=== PATIENT | male | born 1940 | race Caucasian/White ===

== ENCOUNTER 2019-07-18 06:19 | Emergency (ER) | payer BC, MEDICARE ==
[~2019-07-18] VITALS: Ht 175.3 cm; Wt 93.0 kg
--- NOTE | 2019-07-18 06:31 | NUR ---
ED Nurse Note: Pt ambulated to ED from home with , pt fell in bathroom at 0100 hitting his chest on the toilet, c/o 4/10 pain. VSS
[2019-07-18 06:32] VITALS: BP 167/84
--- NOTE | 2019-07-18 06:39 | Emergency Room Report ---
History of Present Illness General Chief Complaint: Multiple Trauma/Fall Source: Patient Present Illness HPI Patient is a 79-year-old male presents after increased center chest pain. Onset of symptoms occurred after a fall approximately 5 hours prior to arrival. Patient had prior history of thrombocytopenia. He is not currently taking any blood thinners other than aspirin. He had prior history of hypertension and is on Coreg. Carvedilol amlodipine and Edarbi. He reports having some central chest discomfort. Denies loss of consciousness. No fevers. Allergies: Coded Allergies: No Known Allergies (Unverified , 07/18/19) Patient History Past Medical History: HTN Past Surgical History: other - back surgery Reviewed Nursing Documentation: PMH: Agreed; PSxH: Agreed Nursing Documentation-PMH Hx Hypertension: Yes Review of Systems All Other Systems: negative except mentioned in HPI Physical Exam Vital Signs Date Time Temp Pulse Resp B/P (MAP) Pulse Ox O2 Delivery O2 Flow Rate FiO2 07/18/19 06:21 60 16 167/84 (111) 97 Room Air Sp02 EP Interpretation: reviewed, normal General Appearance: normal inspection, well appearing, no apparent distress, alert, GCS 15, obese Head: atraumatic ENT: normal ENT inspection, hearing grossly normal, normal voice Neck: normal inspection, full range of motion, supple, no bony tend Respiratory: normal inspection, lungs clear, normal breath sounds, no respiratory distress, no retraction, no wheezing Cardiovascular #1: regular rate, rhythm, no edema Gastrointestinal: normal inspection, normal bowel sounds, non tender, soft, no guarding, no hernia Genitourinary: no CVA tenderness Musculoskeletal: normal inspection, back normal, normal range of motion Neurologic: normal inspection, alert, oriented x3, responsive, 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 Differential diagnosis include was not limited to chest wall contusion, sternal fracture, rib fracture , pneumothorax among others. Because of complexity of patient's case laboratory tests and imaging studies were ordered. Has an overall benign exam. He appears to be somewhat chronically ill but does not appear to have any symptoms consistent with acute coronary syndrome. CT of chest was ordered due to patient's advanced age and read by radiology showed multiple chronic findings with some evidence of subcutaneous tissue swelling consistent with a chest wall contusion. There is no evident acute hemorrhage. Patient was advised to follow-up with his primary care physician regarding CT findings. He was given a copy of the reports. EKG interpreted by me showed normal sinus rhythm with a rate of 53 with right bundle branch block.Patient was given lidocaine patch as well as acetaminophen. He was advised to follow-up with his primary care physician for recheck. Patient was to return if any worsening condition or other concerns. EKG Diagnostic Results Rate: normal Rhythm: NSR ST Segments: no acute changes Last Vital Signs Date Time Temp Pulse Resp B/P (MAP) Pulse Ox O2 Delivery O2 Flow Rate FiO2 07/18/19 06:32 60 16 Room Air 07/18/19 06:32 167/84 97 Status: improved Disposition: HOME, SELF-CARE Condition: Stable Scripts Acetaminophen* (ACETAMINOPHEN EXTRA STRENGTH*) 500 Mg Tablet 500 MG ORAL Q8H PRN for Fever/Headache/Mild Pain, #30 TAB Prov: Eugene Valentin MD 07/18/19 Lidocaine Patch* (Lidoderm Patch*) 1 Each Adh..patch 1 PATCH TOPIC DAILY, #7 PATCH 0 Refills Patch(es) may remain in place for up to 12 hours in any 24-hour period. Prov: Eugene Valentin MD 07/18/19 Eugene Valentin MD Jul 18, 2019 06:39
--- NOTE | 2019-07-18 07:07 | NUR ---
HAND-OFF: Report given to DEMARIO Bradshaw.
[2019-07-18] MEDS ORDERED: LIDODERM700 M1 TOPIC (07:20)
[2019-07-18] MEDS ORDERED: ACETAMINOPHEN500 M3 ORAL (07:20)
[2019-07-18] MEDS ORDERED: Acetaminophen 500mg (ES) tab ORAL ONE (07:30)
--- NOTE | 2019-07-18 07:31 | Diagnostic Imaging Report ---
Indication: Chest pain Technique: Continuous helical transaxial imaging of the chest was obtained from the thoracic inlet to the upper abdomen. No intravenous contrast was administered. Coronal 2-D reformats were also obtained. Total Dose length Product (DLP): [address] Dose Index Volume (CTDIvol): 19.9 mGy Comparison: none Findings: There are fine, reticular densities at the lung bases nonspecific. Small hiatal hernia is present. There are small hypodensities within the liver nonspecific. No contrast given on this study. Gallstones are noted. Moderate calcification of aorta demonstrated. Coronary calcification also noted. No adenopathy identified. No consolidative opacities within the lungs identified. No pleural effusion seen. Few calcific granulomata are noted. In the anterior chest wall on the right side, there is ill-defined subcutaneous edema nature which is not known. Correlate for trauma or infection/cellulitis. There is no abnormal fluid collection or evidence of an abscess. IMPRESSION: Right lower anterior chest wall edema versus cellulitis. Correlate clinically. No acute findings. Mild prominence of the interstitium at the lung bases nonspecific. Atherosclerotic vascular disease. All stones. Hypodensities in the liver too small to characterize adequately on this examination done without IV contrast. The CT scanner at [facility] is accredited by the [employer] and the scans are performed using dose optimization techniques as appropriate to a performed exam including Automatic Exposure control.
--- NOTE | 2019-07-18 07:45 | NUR ---
ER DISCHARGE NOTE: Patient is cleared to be discharged per ERMD, pt is aox4, on room air, with stable vital signs. pt was given dc and prescription instructions, pt was able to verbalize understanding, pt id band removed without complications. pt is able to ambulate with steady gait. pt took all belongings.
== END 2019-07-18 07:48 | disposition home or self-care (01) ==
LOC: EMR 06:50
DX: S20.219A Contusion of unspecified front wall of thorax, initial encounter (principal); I10 Essential (primary) hypertension; Z79.82 Long term (current) use of aspirin; I45.10 Unspecified right bundle-branch block; W01.0XXA Fall on same level from slipping, tripping and stumbling without subsequent striking against object, initial encounter; Y92.9 Unspecified place or not applicable
CPT/HCPCS: 71250; 93005; 99284

== ENCOUNTER 2019-10-04 19:34 | Inpatient (IN) | payer BC, MEDICARE ==
[~2019-10-04] VITALS: Ht 175.3 cm; Wt 95.7 kg
[~2019-10-04 19:34] MED LIST: ACETAMINOPHEN500 M3 ORAL; LIDODERM700 M1 TOPIC
[2019-10-04] MEDS ORDERED: FLOMAX0.4 MG ORAL (19:50)
[2019-10-04] MEDS ORDERED: EDARBI80 MG ORAL (19:50)
[2019-10-04] MEDS ORDERED: AMLODIPINE BESYL5 MG ORAL (19:50)
[2019-10-04] MEDS ORDERED: CARVEDILOL25 MG ORAL (19:50)
[2019-10-04] MEDS ORDERED: LIPITOR40 MG ORAL (19:50)
[2019-10-04 19:51] VITALS: BP 147/80
--- NOTE | 2019-10-04 19:51 | NUR ---
ED Nurse Note: PT FROM HOME CAME IN S/P SLIPPED AND FELL IN THE KITCHEN. PT HIT HIS HEAD AND BURNED HIS RIGHT LEG ON THE OVEN DOOR WHILE TAKING SOMETHING OUT FORM THE OVEN. NOTE BURNED SKIN ON RIGHT KNEE AND RIGTH THIGH. ALSO NOTED A LARGE HEMATOMA ON RIGHT LATERAL FOREHEAD. AAO X,4 AMBULATORY. DENIES DIZZINESS OR VOMITING. AT THE BED SIDE.
--- NOTE | 2019-10-04 20:10 | NUR ---
ED Nurse Note: NOTED OLD BRUISING ON RIGHT UPPER ARM. PT STATES IT WAS FROM ANOTHER FALL AND HE IS TAKING ASPIRIN.
--- NOTE | 2019-10-04 20:20 | NUR ---
ED Nurse Note: PT TAKEN TO CT AND STABLE.
--- NOTE | 2019-10-04 20:28 | NUR ---
ED Nurse Note: PT CAME BACK FROM CT AND STABLE.
[2019-10-04 20:35] LABS: HEMATOCRIT 40.6 % (42.0-52.0); HEMOGLOBIN 14.1 G/DL (14.2-18.0); MEAN CORPUSCULAR VOLUME 86 FL (80-99); PLATELET COUNT 89 K/UL (150-450); RED BLOOD COUNT 4.72 M/UL (4.70-6.10); RED CELL DISTRIBUTION WIDTH 13.5 % (11.6-14.8); WHITE BLOOD COUNT 5.3 K/UL (4.8-10.8)
--- NOTE | 2019-10-04 20:38 | Diagnostic Imaging Report ---
Indications: Head trauma Technique: Spiral acquisitions obtained through the brain. Angled axial and coronal 5 x 5 mm slices were reconstructed. Total dose length product 1457 mGycm. CTDI vol(s) 62 mGy. Dose reduction achieved using automated exposure control Comparison: None. Findings: No acute intracranial hemorrhage or edema. No mass effect nor midline shift. There is mild age-related enlargement of the ventricles and extra axial CSF spaces. Normal arguello-white differentiation. Intact calvarium. Visualized orbits and sinuses are unremarkable. The mastoids are clear. There is a right frontal scalp hematoma noted. Impression: Extracranial right frontal scalp hematoma Negative for acute intracranial bleed or mass effect Minimal age-related volume loss This agrees with the preliminary interpretation provided overnight by [facility] teleradiology service. The CT scanner at [facility] is accredited by the [employer] and the scans are performed using protocols designed to limit radiation exposure to as low as reasonably achievable to attain images of sufficient resolution adequate for diagnostic evaluation.
[2019-10-04 20:39] LABS: INR 0.9 (0.9-1.1)
[2019-10-04] MEDS ORDERED: Bacitracin Oint UD TOPIC ONE ×2 (20:48→21:00)
[2019-10-04 20:54] LABS: ANION GAP 9 mmol/L (5-15); BLOOD UREA NITROGEN 38 mg/dL (7-18); CALCIUM 8.9 MG/DL (8.5-10.1); CARBON DIOXIDE 28 MMOL/L (21-32); CHLORIDE 104 MMOL/L (98-107); CREATININE 0.9 MG/DL (0.55-1.30); POTASSIUM 4.6 MMOL/L (3.5-5.1); SODIUM 141 MMOL/L (136-145)
[2019-10-04 21:00] LABS: ALANINE AMINOTRANSFERASE 23 U/L (12-78); ALBUMIN 4.1 G/DL (3.4-5.0); ALBUMIN/GLOBULIN RATIO 1.2 (1.0-2.7); ALKALINE PHOSPHATASE 64 U/L (46-116); ASPARTATE AMINO TRANSFERASE 39 U/L (15-37); BILIRUBIN,TOTAL 0.5 MG/DL (0.2-1.0)
--- NOTE | 2019-10-04 21:26 | Emergency Room Report ---
History of Present Illness General Chief Complaint: Multiple Trauma/Fall Source: Patient Present Illness Allergies: Coded Allergies: No Known Allergies (Unverified , 07/18/19) Nursing Documentation-PMH Hx Cardiac Problems: Yes - cvd; 2 stents Hx Hypertension: Yes Hx Pacemaker: No Hx Asthma: No Hx COPD: No Hx Diabetes: No Hx Cancer: No Hx Gastrointestinal Problems: No Hx Dialysis: No History Of Psychiatric Problem: No Hx Neurological Problems: No Hx Cerebrovascular Accident: No Hx Seizures: No Physical Exam Vital Signs Date Time Temp Pulse Resp B/P (MAP) Pulse Ox O2 Delivery O2 Flow Rate FiO2 10/04/19 19:41 98.1 58 18 194/79 (117) 98 Room Air Medical Decision Making Last Vital Signs Date Time Temp Pulse Resp B/P (MAP) Pulse Ox O2 Delivery O2 Flow Rate FiO2 10/04/19 19:51 98.1 62 15 147/80 100 Room Air Uma Batista DO Oct 04, 2019 21:26
[2019-10-04 22:05] VITALS: BP 172/67
--- NOTE | 2019-10-04 22:15 | NUR ---
ED Nurse Note: AMLODIPINE 5MG PO GIVEN TO PT PER ERMD ORDER. (SEE PAPER CHART)
--- NOTE | 2019-10-04 23:06 | NUR ---
HAND-OFF: Report given to HENRY HANKS.
--- NOTE | 2019-10-04 23:14 | NUR ---
ED Nurse Note: asked to call back in 10 minutes to give report. will continue to monitor pt
--- NOTE | 2019-10-04 23:24 | NUR ---
ED Nurse Note: report given to DEMARIO Zaragoza
--- NOTE | 2019-10-04 23:40 | NUR ---
NURSE NOTES: Received patient from ER, patient alert and oriented x4. Ambulatory, steady, walked to the bathroom. at bedside. Instructed patient to call if he needs to get out of bed d/t recent fall. Patient has a right forehead hematoma from fall. Head CT was negative. Pupils equal, round, reactive. Able to move all extremities, equal strength bilaterally. Multiple bruises on upper and lower extremities. Patient states bruises were old and that it happens frequently because he has low platelets. Multiple first degree burn benjamin on lower extremity, see photos. Bed in low position, locked, bed alarm on, call light within reach.
[2019-10-04 23:50] VITALS: BP 172/82
--- NOTE | 2019-10-05 00:30 | NUR ---
NURSE NOTES: Received admitting orders from Dr. Daniel. Patient has a SBP >170 but heart rate is below 50, will hold clonidine and continue to monitor.
[2019-10-05 04:00] VITALS: BP 159/75
[2019-10-05 07:46] LABS: ANION GAP 9 mmol/L (5-15); BLOOD UREA NITROGEN 25 mg/dL (7-18); CALCIUM 8.7 MG/DL (8.5-10.1); CARBON DIOXIDE 26 MMOL/L (21-32); CHLORIDE 107 MMOL/L (98-107); CREATININE 0.8 MG/DL (0.55-1.30); HEMATOCRIT 35.4 % (42.0-52.0); HEMOGLOBIN 12.3 G/DL (14.2-18.0); MEAN CORPUSCULAR VOLUME 85 FL (80-99); PLATELET COUNT 69 K/UL (150-450); RED BLOOD COUNT 4.18 M/UL (4.70-6.10); RED CELL DISTRIBUTION WIDTH 13.4 % (11.6-14.8); SODIUM 142 MMOL/L (136-145); WHITE BLOOD COUNT 6.2 K/UL (4.8-10.8)
[2019-10-05 08:53] VITALS: BP 115/61
[2019-10-05] MEDS ORDERED: Tamsulosin 0.4mg cap ORAL SCH (09:00)
[2019-10-05] MEDS ORDERED: Carvedilol 25mg Tab ORAL SCH (09:00)
--- NOTE | 2019-10-05 11:24 | NUR ---
patient discharged with all his belonging as ordered per protocol. vital signs stable. patient a/o x 4 no c/o pain and SOB.
--- NOTE | 2019-10-05 11:48 | History and Physical ---
History of Present Illness General Date patient seen: Oct 05, 2019 Reason for Hospitalization: Multiple Trauma/Fall Present Illness HPI 79 year old male with hx of ITP, BPH, HTN, presented to ER after an episode of fall at home in their kitchen next to the oven. He sustained superficial skin burn. His initial ct of head in ER was negative. He is admitted for observation. Allergies: Coded Allergies: No Known Allergies (Unverified , 07/18/19) Medication History Scheduled Amlodipine Besylate* (Amlodipine Besylate*), 5 MG ORAL DAILY, (Reported) Atorvastatin Calcium* (Lipitor*), 40 MG ORAL DAILY, (Reported) Azilsartan Medoxomil (Edarbi), 80 MG ORAL DAILY, (Reported) Carvedilol* (Carvedilol*), 25 MG ORAL EVERY 12 HOURS, (Reported) Lidocaine Patch* (Lidoderm Patch*), 1 PATCH TOPIC DAILY Tamsulosin HCl (Flomax), 0.4 MG ORAL DAILY, (Reported) Scheduled PRN Acetaminophen* (Acetaminophen Extra Strength*), 500 MG ORAL Q8H PRN for Fever/ Headache/Mild Pain Patient History Healthcare decision maker Resuscitation status Full Code Advanced Directive on File Past Medical/Surgical History Past Medical/Surgical History: (1) Hypertension (2) BPH (benign prostatic hyperplasia) (3) Chronic ITP (idiopathic thrombocytopenia) Review of Systems All Other Systems: negative except mentioned in HPI Physical Exam General Appearance: WD/WN Lines, tubes and drains: peripheral HEENT: normocephalic, atraumatic Neck: non-tender, normal alignment Respiratory/Chest: chest wall non-tender, lungs clear Breasts: no masses Cardiovascular/Chest: normal rate, regular rhythm Abdomen: normal bowel sounds Genitourinary/Rectal: normal genital exam Skin Exam: normal pigmentation Neurologic: cadmium burner II-XII grossly normal Last 24 Hour Vital Signs Date Time Temp Pulse Resp B/P (MAP) Pulse Ox O2 Delivery O2 Flow Rate FiO2 10/05/19 08:53 96.6 92 20 115/61 (79) 94 10/05/19 04:00 96.6 73 19 159/75 (103) 97 10/05/19 04:00 47 10/05/19 00:00 Room Air Room Air 10/05/19 00:00 56 10/04/19 23:50 97.3 57 19 172/82 (112) 98 10/04/19 23:40 98.4 79 17 158/65 98 Room Air 10/04/19 22:05 98.4 79 17 172/67 98 Room Air 10/04/19 19:51 98.1 62 15 147/80 100 Room Air 10/04/19 19:51 62 16 Room Air 10/04/19 19:41 98.1 58 18 194/79 (117) 98 Room Air Intake and Output 10/04/19 10/05/19 19:00 07:00 Intake Total 60 ml Output Total 550 ml Balance -490 ml Intake Oral 60 ml Output Urine Total 550 ml Laboratory Tests Test 10/04/19 20:08 10/05/19 06:08 White Blood Count 5.3 K/UL (4.8-10.8) 6.2 K/UL (4.8-10.8) Red Blood Count 4.72 M/UL (4.70-6.10) 4.18 M/UL (4.70-6.10) L Hemoglobin 14.1 G/DL (14.2-18.0) L 12.3 G/DL (14.2-18.0) L Hematocrit 40.6 % (42.0-52.0) L 35.4 % (42.0-52.0) L Mean Corpuscular Volume 86 FL (80-99) 85 FL (80-99) Mean Corpuscular Hemoglobin 29.9 PG (27.0-31.0) 29.4 PG (27.0-31.0) Mean Corpuscular Hemoglobin Concent 34.8 G/DL (32.0-36.0) 34.7 G/DL (32.0-36.0) Red Cell Distribution Width 13.5 % (11.6-14.8) 13.4 % (11.6-14.8) Platelet Count 89 K/UL (150-450) L 69 K/UL (150-450) L Mean Platelet Volume 12.3 FL (6.5-10.1) H 11.4 FL (6.5-10.1) H Neutrophils (%) (Auto) % (45.0-75.0) % (45.0-75.0) Lymphocytes (%) (Auto) % (20.0-45.0) % (20.0-45.0) Monocytes (%) (Auto) % (1.0-10.0) % (1.0-10.0) Eosinophils (%) (Auto) % (0.0-3.0) % (0.0-3.0) Basophils (%) (Auto) % (0.0-2.0) % (0.0-2.0) Differential Total Cells Counted 100 100 Neutrophils % (Manual) 63 % (45-75) 77 % (45-75) H Lymphocytes % (Manual) 25 % (20-45) 16 % (20-45) L Monocytes % (Manual) 8 % (1-10) 6 % (1-10) Eosinophils % (Manual) 1 % (0-3) 1 % (0-3) Basophils % (Manual) 1 % (0-2) 0 % (0-2) Band Neutrophils 2 % (0-8) 0 % (0-8) Platelet Estimate Decreased L Decreased L Platelet Morphology Normal Normal Red Blood Cell Morphology Normal Normal Prothrombin Time 10.1 SEC (9.30-11.50) Prothromb Time International Ratio 0.9 (0.9-1.1) Activated Partial Thromboplast Time 23 SEC (23-33) Sodium Level 141 MMOL/L (136-145) 142 MMOL/L (136-145) Potassium Level 4.6 MMOL/L (3.5-5.1) 4.0 MMOL/L (3.5-5.1) Chloride Level 104 MMOL/L (98-107) 107 MMOL/L (98-107) Carbon Dioxide Level 28 MMOL/L (21-32) 26 MMOL/L (21-32) Anion Gap 9 mmol/L (5-15) 9 mmol/L (5-15) Blood Urea Nitrogen 38 mg/dL (7-18) H 25 mg/dL (7-18) H Creatinine 0.9 MG/DL (0.55-1.30) 0.8 MG/DL (0.55-1.30) Estimat Glomerular Filtration Rate mL/min (>60) mL/min (>60) Glucose Level 132 MG/DL (74-106) H 104 MG/DL (74-106) Calcium Level 8.9 MG/DL (8.5-10.1) 8.7 MG/DL (8.5-10.1) Total Bilirubin 0.5 MG/DL (0.2-1.0) Aspartate Amino Transf (AST/SGOT) 39 U/L (15-37) H Alanine Aminotransferase (ALT/SGPT) 23 U/L (12-78) Alkaline Phosphatase 64 U/L (46-116) Troponin I 0.000 ng/mL (0.000-0.056) Total Protein 7.6 G/DL (6.4-8.2) Albumin 4.1 G/DL (3.4-5.0) Globulin 3.5 g/dL Albumin/Globulin Ratio 1.2 (1.0-2.7) Height (Feet): 5 Height (Inches): 9.00 Weight (Pounds): 211 Assessment/Plan Problem List: (1) Head trauma ICD Codes: S09.90XA - Unspecified injury of head, initial encounter SNOMED: 59723403 (2) Skin burn ICD Codes: T30.0 - Burn of unspecified body region, unspecified degree SNOMED: 617818856 (3) Chronic ITP (idiopathic thrombocytopenia) ICD Codes: D69.3 - Immune thrombocytopenic purpura SNOMED: 16554906 (4) BPH (benign prostatic hyperplasia) ICD Codes: N40.0 - Benign prostatic hyperplasia without lower urinary tract symptoms SNOMED: 291391280 (5) Hypertension ICD Codes: I10 - Essential (primary) hypertension SNOMED: 35529043 Assessment/Plan: pt has been asymptomatic overnight. Insists on going home now pt's will arrange an appointment with the primary physician. might need a repeat CT of head if any TRAFFIC INSPECTOR symptoms develop. Chad Daniel MD Oct 05, 2019 11:48
--- NOTE | 2019-10-05 14:03 | NUR ---
CASE MANAGEMENT:REVIEW 79 YR OLD MALE PRESENTED TO ER CC; TRIP AND FALL SI: HEAD TRAUMA. 98.1 58 18 194/79 98% ON RA H/H-14.1/40.6 PLT-89 BUN+38 IS: CT HEAD : TO TELEMETRY FLOMAX PO QD COREG PO Q12 NORVASC PO QD LIPITOR PO QHS PLAN: NEURO CHECKS PER HOSPITAL PROTOCOL
--- NOTE | 2019-10-05 14:19 | NUR ---
*-* INSURANCE *-* ALL CLINICALS AND REVIEWS HAVE BEEN FAXED TO: [employer] SANTI[employer] [id number] NO DEPUTY HEAD AT THIS TIME. P- [phone] F- [phone]...REVIEW /CLINICAL
[2019-10-05] MEDS ORDERED: Atorvastatin 20mg tab ORAL SCH (21:00)
--- NOTE | 2019-10-06 22:08 | Discharge Summary ---
Discharge Summary Discharge Summary _ DATE OF ADMISSION: 10/04/2019 DATE OF DISCHARGE: 10/05/2019 DISCHARGED BY: Dr. Chad Daniel ADMITTING MD: Dr. Vignesh Delgado CONSULTANTS: Dr. Chad Daniel BRIEF HOSPITAL COURSE: Patient history 79-year-old male, with history of ITP, BPH and hypertension presented to ED after an episode of fall at home in the kitchen next to the open. He sustained superficial skin burn. Bacitracin applied. He was admitted to observation. Head CT done at the ED showed extracranial right frontal scalp hematoma. Negative for acute intracranial bleed or mass-effect. He was admitted overnight. Home medications resumed. Neuro status stable. Patient insisted on going home. will arrange follow-up appointment with primary care physician. May need a repeat CT of the head if with any PROGRAM SUPPORT ASSISTANT symptoms. Patient was cleared for discharge home. FINAL DIAGNOSES: Head trauma Skin burn Chronic ITP BPH Hypertension DISPOSITION: Patient was discharged home. DISCHARGE MEDICATIONS: Refer to Discharge Medication List. DISCHARGE INSTRUCTIONS: Follow-up in a week. I have been assigned to complete a discharge summary on this account, I was not involved with the patient's management.--EVERARDO Scott Jacqueline Robles NP Oct 06, 2019 22:08
--- NOTE | 2019-10-08 14:33 | NUR ---
*-* INSURANCE *-* DISCHARGE SUMMARY HAS BEEN FAXED: [employer] S[employer] [id number] NO MANAGER OF COMPLIANCE AT THIS TIME. P- [phone] F- [phone]...REVIEW /CLINICAL
== END 2019-10-05 11:21 | disposition home or self-care (01) | DRG 914 ==
LOC: EMR 22:00 → 2E 22:25 → EDBEDREQ 23:12
DX: S09.90XA Unspecified injury of head, initial encounter (principal); D69.3 Immune thrombocytopenic purpura; S00.03XA Contusion of scalp, initial encounter; T30.0 Burn of unspecified body region, unspecified degree; W19.XXXA Unspecified fall, initial encounter; X19.XXXA Contact with other heat and hot substances, initial encounter; Y92.000 Kitchen of unspecified non-institutional (private) residence as the place of occurrence of the external cause; I10 Essential (primary) hypertension; N40.0 Benign prostatic hyperplasia without lower urinary tract symptoms; I25.10 Atherosclerotic heart disease of native coronary artery without angina pectoris; Z95.5 Presence of coronary angioplasty implant and graft
CPT/HCPCS: 36415; 70450; 80048; 80053; 84484; 85007; 85025; 85610; 85730; 93005; 99285